=== PATIENT | female | born 1955 | race Caucasian/White ===

== ENCOUNTER 2018-01-24 19:21 | Emergency (ER) | payer BC ==
[2018-01-24] MEDS: KETOROLAC 30 MG INJ IM (21:13)
== END 2018-01-24 23:05 | disposition home or self-care (01) ==
LOC: FTE 19:21
DX: S52.614A Nondisplaced fracture of right ulna styloid process, initial encounter for closed fracture (principal); V49.9XXA Car occupant (driver) (passenger) injured in unspecified traffic accident, initial encounter
CPT/HCPCS: 29125; 73090-RT; 73110-RT; 96372; 99284-25